=== PATIENT | male | born 1990 | race African-American/Black ===

== ENCOUNTER 2017-06-07 15:36 | Inpatient (IN) ==
[2017-06-07] MEDS ORDERED: ONDANSETRON 4 MG/2 ML VIAL IV PRN (16:40)
[2017-06-07] MEDS ORDERED: MORPHINE 2 MG/1 ML SYRINGE IV PRN (16:40)
[2017-06-07] MEDS ORDERED: ACETAMINOPHEN 325 MG TABLET PO PRN (16:40)
[2017-06-07] MEDS: PIPERACILLIN/TAZOBACTAM 3,375 MG in SODIUM CHLORIDE 0.9% 100 ML IV SCH (21:05)
[2017-06-07] MEDS: LACTATED RINGERS 1,000 ML IV SCH (21:08)
[2017-06-07] MEDS: CLINDAMYCIN INJ 900 MG in PREMIX 1 EACH IV SCH (21:09)
[2017-06-07] MEDS: DOCUSATE SODIUM 100 MG CAPSULE PO SCH (21:14)
[2017-06-08] MEDS: CLINDAMYCIN INJ 900 MG in PREMIX 1 EACH IV SCH ×4 (03:00→20:14)
[2017-06-08] MEDS: LACTATED RINGERS 1,000 ML IV SCH ×4 (03:11→17:45)
[2017-06-08] MEDS: PIPERACILLIN/TAZOBACTAM 3,375 MG in SODIUM CHLORIDE 0.9% 100 ML IV SCH ×3 (05:01→21:12)
[2017-06-08 05:40] LABS: Basophils # 0.1 10*3/uL (0.0-0.2); Eosinophils # 0.2 10*3/uL (0.0-0.87); Eosinophils % 2.5 % (0.00-10.9); Hematocrit 40.9 VOL% (42.0-52.0); Hemoglobin 13.3 GM/DL (14.0-18.0); Immature Granulocytes % 0.5 %; Immature Granulocytes Absolute 0.04 #; Lymphocytes # 3.1 10*3/uL (1.4-4.0); Lymphocytes % 39.2 % (21.2-54.2); Mean Corpuscular HGB Conc 32.5 GM/DL (32-36); Mean Corpuscular Hemoglobin 27 PG (27-34); Mean Corpuscular Volume 84.2 FL (87-102); Monocytes # 0.8 10*3/uL (0.11-0.8); Monocytes % 10.1 % (1.7-12.7); Neutrophils # 3.7 10*3/uL (1.4-7.4); Neutrophils % 46.7 % (38.7-73.9); Platelet Count 224 T/CUMM (130-400); Red Blood Count 4.86 MC/CUMM (3.8-5.5); Red Cell Distribution Width 13.1 % (9.3-17.3)
[2017-06-08 06:20] LABS: Calcium 8.8 MG/DL (8.5-10.1); Osmolality,Calculated 283.1 MOS/KG (273-304); Potassium 4.3 MMOL/L (3.5-5.1)
[2017-06-08] MEDS: PANTOPRAZOLE 40 MG TABLET PO SCH (09:23)
[2017-06-08] MEDS: DOCUSATE SODIUM 100 MG CAPSULE PO SCH ×2 (09:23→20:16)
[2017-06-08] MEDS ORDERED: SEVOFLURANE 1 UNIT/15 MINUTE INH ONE (10:24)
[2017-06-08] MEDS ORDERED: MIDAZOLAM 2 MG/2 ML VIAL ONE (10:24)
[2017-06-08] MEDS ORDERED: ACETAMINOPHEN 1,000 MG/100 ML VIAL IV ONE (10:24)
[2017-06-08] MEDS ORDERED: fentaNYL 100 MCG/2 ML VIAL ONE (10:24)
[2017-06-08] MEDS ORDERED: PROPOFOL 200 MG/20 ML VIAL IV ONE (10:26)
[2017-06-08] MEDS ORDERED: KETOROLAC 30 MG/1 ML VIAL ONE (10:27)
[2017-06-08] MEDS ORDERED: ONDANSETRON 4 MG/2 ML VIAL ONE ×2 (10:27→10:56)
[2017-06-08] MEDS ORDERED: ONDANSETRON 4 MG/2 ML VIAL IV PRN (10:55)
[2017-06-08] MEDS ORDERED: HYDROmorphone 2 MG/1 ML VIAL IV PRN (10:55)
[2017-06-08] MEDS ORDERED: HYDROmorphone 2 MG/1 ML VIAL ONE (10:56)
[2017-06-09] MEDS: CLINDAMYCIN INJ 900 MG in PREMIX 1 EACH IV SCH ×3 (01:28→13:32)
[2017-06-09] MEDS: PIPERACILLIN/TAZOBACTAM 3,375 MG in SODIUM CHLORIDE 0.9% 100 ML IV SCH ×2 (02:36→11:00)
[2017-06-09] MEDS: LACTATED RINGERS 1,000 ML IV SCH ×2 (06:13→15:00)
[2017-06-09] MEDS: DOCUSATE SODIUM 100 MG CAPSULE PO SCH (09:15)
[2017-06-09] MEDS: PANTOPRAZOLE 40 MG TABLET PO SCH (09:15)
[2017-06-09 16:54] VITALS: BP 124/66
== END 2017-06-09 16:50 | disposition home or self-care (01) | DRG 902 ==
LOC: N.ED 15:36 → N.EDINP 16:40 → N.3E 18:30
PROVIDERS: ADMIT Surgery; ATTEND Surgery